=== PATIENT | female | born 1995 | race African-American/Black ===

== ENCOUNTER 2016-11-09 17:32 | Observation (INO) | payer MEDICAID ==
[2016-11-09] MEDS ORDERED: ceFAZolin 1 GM in NS 100 ML IV ONE (17:36)
[2016-11-09] MEDS ORDERED: fentaNYL 100 MCG/2 ML INJ IVP ONE (17:38)
[2016-11-09] MEDS ORDERED: LORazepam 2 MG/ML INJ IVP ONE (17:48)
--- NOTE | 2016-11-09 17:50 | EDPHY ---
H & P Stated Complaint: open right ankle fracture - Personal History LMP (Females 10-55): 8-14 Days Ago Current Tetanus/Diphtheria Vaccine: Yes Current Tetanus Diphtheria and Acellular Pertussis (TDAP): Yes Tetanus Vaccine Date: 2015 - Medical/Surgical History Hx Asthma: No Hx Chronic Respiratory Disease: No Hx Diabetes: No Hx Cardiac Disease: No Hx Renal Disease: No Hx Cirrhosis: No Hx Alcoholism: No Hx HIV/AIDS: No Hx Splenectomy or Spleen Trauma: No Other PMH: depression on meds - Social History Smoking Status: Never smoked Time Seen by Provider: 11/09/16 17:33 HPI/ROS: CHIEF COMPLAINT: Possible open right ankle fracture HISTORY OF PRESENT ILLNESS: 21-year-old female arrives by ambulance, not a trauma activation, after she was learning had a skateboard, was stopping and rolled her foot and ankle. She is complaining of acute right ankle pain, visible deformity, possible open fracture per EMS. She denies other injury. Denies head injury. Denies back pain injury, denies midline C-spine pain or injury, denies straddle injury, denies chest pain or trauma that dyspnea. Last oral intake at 12:30 p.m. today. REVIEW OF SYSTEMS: A ten point review of systems was performed and is negative with the exception of the items mentioned in the HPI PAST MEDICAL/SURGICAL HISTORY: no anticoagulant use, history of depression. SOCIAL HISTORY: denies alcohol use at time of incident PHYSICAL EXAM 1) GENERAL: Well-developed, well-nourished, alert and oriented. Appears to be in no acute distress. Answering questions appropriately. 2) HEAD: Normocephalic, atraumatic 3) HEENT: Pupils equal, round, reactive to light bilaterally. Negative Horners. Nasopharynx, oropharynx, clear. No deformity or angulation of nose. No septal hematoma. No rhinorrhea. No oral trauma. Ears bilaterally with normal tympanic membranes. No hemotympanum. No fluid or blood in the external auditory canal. No raccoon eyes. No Gilmore sign. Teeth are normally aligned with no gross malocclusion, TMJ bilaterally nontender, facial bones nontender including the zygomatic arch, maxilla mandible. 4) NECK: No cervical collar is on. Posterior cervical spine is nontender, no stepoff, no effusion. Full range of motion which does not elicit any midline cervical spine pain, no posterior midline tenderness, no step-off. 5) LUNGS: Clear to auscultation bilaterally, no wheezes, no rhonchi, no retractions. No obvious signs of trauma. No chest wall pain. No flaring, no grunting. Moving symmetrically. No crepitus. 6) HEART: Regular rate and rhythm, 7) ABDOMEN: No guarding, no rebound, no focal tenderness, no peritoneal signs, no signs of trauma, no ecchymosis 8) MUSCULOSKELETAL: Right lower extremity: The right foot is externally rotated 90 degrees with tenting of the tissue, laceration to the medial aspect of the foot. She is tender to palpation fibular head. DP PT pulses present. Brisk capillary refill. 9) BACK: No midline vertebral tenderness, no fluctuance, no step-off, no obvious trauma, no visual or palpable abnormality. 10) SKIN: right medial ankle laceration/puncture wound DIFFERENTIAL DIAGNOSIS: [ in no particular include but limited to fracture, dislocation, open fracture (Dawson,Seb Alexus) Constitutional: Initial Vital Signs Temperature (C) 36.5 C 11/09/16 17:35 O2 Delivery Mode Room Air O2 (L/minute) 2 Allergies/Adverse Reactions: No Known Allergies Allergy (Unverified 11/09/16 17:37) Home Medications: Medication Instructions Recorded Venlafaxine Xr [Effexor Xr] 300 mg PO DAILY 11/09/16 Medical Decision Making - Diagnostics Imaging Results: Imaging Impressions Ankle X-Ray 11/09/16 17:35 Impression: Fracture dislocation ankle. 2. Right Tibia-Fibula, 4 views History: Long board injury, ankle fracture dislocation Findings: The more proximal tibia and fibula look normal. The proximal tibiofibular joint is normally aligned. The distal interosseous membrane is disrupted along its distal 6 cm length. Impression: The more proximal tibia left and entirety of the tibia are normal. Tibia/Fibula X-Ray 11/09/16 17:40 Impression: Fracture dislocation ankle. 2. Right Tibia-Fibula, 4 views History: Long board injury, ankle fracture dislocation Findings: The more proximal tibia and fibula look normal. The proximal tibiofibular joint is normally aligned. The distal interosseous membrane is disrupted along its distal 6 cm length. Impression: The more proximal tibia left and entirety of the tibia are normal. Ankle X-Ray 11/09/16 18:01 Impression: Successful reduction. 2. Right Ankle, 3 views in a cast, 18:18 History: Post reduction Comparison: Prereduction 17:56 Findings: The distal fibular fracture is comminuted and approaches anatomic alignment. There is abnormal widening of the medial ankle mortise, adjacent to the relocated talar dome. No talar dome or distal tibial fracture is identified. Impression: The medial ankle mortise remains abnormally widened. The dislocation has been reduced. Images reviewed by myself (Seb Osman) Procedures: Procedure: Fracture- Dislocation reduction. The fracture-dislocation of the right ankle was reduced using traction and counter traction technique without complications. Post reduction the patient's neurovascular exam is normal. Post reduction x-ray demonstrates reduction of the joint to the anatomic position. The procedure was performed by myself and Dr Stafford Procedure: Splint A 3 way Ortho Glass above the knee splint was applied by ER production line technician. After application of the splint I returned and re-examined the patient. The splint was adequately immobilizing the joint and distal to the splint the patient's circulation and sensation were intact. (Seb Osman) ED Course/Re-evaluation: Patient seen on arrival by myself and Dr. Victoria Stafford. She has visible deformity with likely open fracture. Plan will be IV Ancef, analgesia, x-rays. 6:14 p.m.: Due to concerns over the patient's neurovascular status, significant tenting of the tissue, decision to emergently reduce the patient's ankle was performed. Dr. Victoria Stafford has spoken with orthopedics Dr. Philipp Reza'gaetano and plan will be admission to Dr. Reza's service. Patient was also noted to have abnormal appearance to the foot on imaging. CT of the foot and ankle with 3D reconstructions will be obtained. (Seb Osman) Other Provider: I evaluated and participated in the management of the patient. I also evaluated the patient independently. My co-signature indicates that I have reviewed this chart and I agree with the findings and plan of care as documented. My personal H&P findings include: 21-year-old female who injured her ankle while long boarding. Patient stepped off the back of the long board to stop and felt a snap in the right ankle. She presents with a significant obvious ankle dislocation with significant tenting of the skin over the medial malleoli as well as a possible open fracture. On examination the patient has a obvious ankle dislocation on the right ankle. Dorsalis pedis and posterior tibial pulses surprisingly are intact. No discomfort of the proximal fibula. X-rays demonstrate a tibial talar dislocation with a fracture of the distal fibula. Patient received a g of Ancef. Patient received fentanyl IV. Closed reduction of the dislocation was performed. Please see the dislocation reduction procedure note. Post reduction x-rays demonstrate the ankle mortise to be slightly widen. Postreduction x-rays also demonstrate concerns regarding apart potential mid foot sprains or midfoot subluxation. CT scans will be obtained. Patient's course was discussed shortly after the patient arrived with Dr. Reza from Orthopedic surgery. Dr. Reza reviewed the pre and post reduction films as well as the CT scan admitted to Dr. Flores service for operative repair. (Victoria Stafford) - Data Points Medications Given: Discontinued Medications Bacitracin (Bacitracin Ophthalmic) Confirm Administered Dose 28 margareth .ROUTE .STK- MED ONE Stop: 11/09/16 19:51 Last Admin: 11/09/16 23:20 Dose: Not Given Bacitracin (Bacitracin Ointment Tube) Confirm Administered Dose 14.2 margareth TP .STK -MED ONE Stop: 11/09/16 22:32 Last Admin: 11/10/16 00:45 Dose: Not Given Bupivacaine HCl (Sensorcaine 0.25% Sdv) Confirm Administered Dose 30 ml .ROUTE .STK-MED ONE Stop: 11/09/16 19:51 Last Admin: 11/09/16 23:32 Dose: Not Given Fentanyl (Sublimaze) 100 mcg IVP EDNOW ONE Stop: 11/09/16 17:39 Last Admin: 11/09/16 17:40 Dose: 100 mcg Hydromorphone HCl (Dilaudid) 1 mg IVP EDNOW ONE Stop: 11/09/16 18:05 Last Admin: 11/09/16 18:07 Dose: 1 mg Cefazolin Sodium 1 gm/ Sodium (Chloride) 100 mls @ 400 mls/hr IV EDNOW ONE PRN Reason: Protocol Stop: 11/09/16 17:50 Last Admin: 11/09/16 18:19 Dose: Not Given Cefazolin Sodium/Dextrose (Ancef 1 Gm (Premix)) 50 mls @ 200 mls/hr IV EDNOW ONE PRN Reason: Protocol Stop: 11/09/16 18:11 Last Admin: 11/09/16 18:03 Dose: 50 mls Lactated Ringer's (Lr) 1,000 mls @ 0 mls/hr IV ONCE ONE PRN Reason: KVO Stop: 11/09/16 20:24 Last Admin: 11/10/16 00:46 Dose: Not Given Lidocaine HCl (Lidocaine Hcl 1%) Confirm Administered Dose 300 mg .ROUTE .STK- MED ONE Stop: 11/09/16 19:51 Last Admin: 11/09/16 23:34 Dose: 5 mg Lorazepam (Ativan Injection) 1 mg IVP EDNOW ONE Stop: 11/09/16 17:49 Last Admin: 11/09/16 17:52 Dose: 1 mg Departure - Departure Disposition: [facility] Inpatient Acute Clinical Impression: Open right ankle fracture Qualifiers: Encounter type: initial encounter Open fracture type: open type I or II Qualified Code(s): S82.891B - Other fracture of right lower leg, initial encounter for open fracture type I or II Fall from skateboard Qualifiers: Encounter type: initial encounter Qualified Code(s): V00.131A - Fall from skateboard, initial encounter Condition: Fair
[2016-11-09] MEDS ORDERED: HYDROmorphONE/DILAUDID 1 MG/ML INJ IVP ONE (18:04)
[2016-11-09] MEDS ORDERED: BUPIVACAINE 0.25% 30 ML SDV ONE (19:50)
[2016-11-09] MEDS ORDERED: BACITRACIN OPHTHALMIC OPTH OINTMENT ONE (19:50)
[2016-11-09] MEDS ORDERED: LIDOCAINE 1% 300 MG/30 ML SDV ONE (19:50)
--- NOTE | 2016-11-09 20:06 | PDANEPAE ---
ANE History of Present Illness right ankle fx s/p fall; p/f ORIF ANE Past Medical History - Cardiovascular History Hx Hypertension: No Hx Arrhythmias: No Hx Chest Pain: No Hx Coronary Artery / Peripheral Vascular Disease: No Hx CHF / Valvular Disease: No Hx Palpitations: No - Pulmonary History Hx COPD: No Hx Asthma/Reactive Airway Disease: No Hx Recent Upper Respiratory Infection: No Hx Oxygen in Use at Home: No Hx Sleep Apnea: No - Endocrine History Hx Diabetes: No Hypothyroid: No Hyperthyroid: No Obesity: no ANE Review of Systems Review of systems is: negative Review of Systems: - Exercise capacity Exercise capacity: >=4 METS ANE Patient History - Allergies Allergies/Adverse Reactions: No Known Allergies Allergy (Unverified 11/09/16 17:37) - Home Medications Home medications: home medication list seen and reviewed Home Medications: Venlafaxine Xr [Effexor Xr] 300 mg PO DAILY 11/09/16 [Last Taken 11/09/16] - NPO status NPO Since - Liquids (Date): 11/09/16 NPO Since - Liquids (Time): 17:00 NPO Since - Solids (Date): 11/09/16 NPO Since - Solids (Time): 12:00 - Anes Hx Anes Hx: no prior problems - Smoking Hx Smoking Status: Never smoked ANE Labs/Vital Signs - Vital Signs Blood Pressure: 151/77 Heart Rate: 78 Respiratory Rate: 16 O2 Sat (%): 98 Height: 180.34 cm Weight: 83.915 kg ANE Physical Exam - Airway Neck exam: FROM Mallampati Score: Class 1 Mouth exam: normal dental/mouth exam - Pulmonary Pulmonary: no respiratory distress - Cardiovascular Cardiovascular: regular rate and rhythym - ASA Status ASA Status: II, E ANE Anesthesia Plan Anesthesia Plan: general endotracheal anesthesia Urgent/Emergent Case: Nishant brewer completed preop but documented later for safe timely pt care
[2016-11-09] MEDS ORDERED: PROPOFOL 200 MG/20 ML VIAL ONE ×2 (20:08)
[2016-11-09] MEDS ORDERED: fentaNYL 100 MCG/2 ML INJ ONE (20:08)
[2016-11-09] MEDS ORDERED: LIDOCAINE 2% 5 ML SDV ONE (20:12)
[2016-11-09] MEDS ORDERED: DEXAMETHASONE 4 MG/ML VIAL ONE (20:14)
[2016-11-09] MEDS ORDERED: ONDANSETRON 4 MG/2 ML VIAL ONE (20:14)
[2016-11-09] MEDS ORDERED: LR 1,000 ML IV ONE (20:23)
[2016-11-09] MEDS ORDERED: CEFAZOLIN 1 GM/DEXTROSE/50 ML BAG IV ONE (20:30)
[2016-11-09] MEDS ORDERED: SUGAMMADEX SODIUM 200 MG/2 ML VIAL IVP ONE (20:59)
[2016-11-09] MEDS ORDERED: ROCURONIUM 100 MG/10 ML VIAL ONE (21:00)
[2016-11-09] MEDS ORDERED: HYDROmorphONE/DILAUDID 2 MG/ML INJ ONE (21:06)
[2016-11-09] MEDS ORDERED: BACITRACIN ZINC 14.2 GM OINTTUBE TP ONE (22:31)
[2016-11-09] MEDS ORDERED: HYDROmorphONE/DILAUDID 1 MG/ML INJ IVP PRN (23:09)
[2016-11-09] MEDS ORDERED: OXYCODONE/APAP 5/325 TAB PO PRN (23:09)
[2016-11-09] MEDS ORDERED: PROMETHAZINE HCL 25 MG/ML INJ IVP PRN (23:09)
[2016-11-09] MEDS ORDERED: ALBUTEROL 3 ML DEYVIAL IH PRN (23:09)
[2016-11-09] MEDS ORDERED: fentaNYL 100 MCG/2 ML INJ IVP PRN (23:09)
[2016-11-09] MEDS ORDERED: NALOXONE HCL 0.4 MG/ML INJ IVP PRN (23:09)
[2016-11-09] MEDS ORDERED: ACETAMINOPHEN 500 MG TAB PO PRN (23:09)
[2016-11-09] MEDS ORDERED: ONDANSETRON 4 MG/2 ML VIAL IVP PRN (23:09)
--- NOTE | 2016-11-09 23:51 | POSTANESTH ---
Post Anesthetic Evaluation Cardiovascular Status: Normal, Stable Respiratory Status: Normal, Stable Level of Consciousness/Mental Status: Can Participate in Eval Pain Control: Adequate, Prn Tx Ordered Nausea/Vomiting Control: Adequate, Prn Tx Ordered Complications Possibly Related to Anesthesia: None Noted
--- NOTE | 2016-11-10 00:18 | POSTOPPROG ---
Post Op Note Date of Operation: 11/10/16 Surgeon: Philipp Reza Supervisor Plastic Sheets: None Anesthesia: GET(General Endotracheal) Pre-op Diagnosis: Right open ankle fracture dislocation Post-op Diagnosis: Right open ankle fracture dislocation, cartilage defect of talus Procedure: I&D and ORIF of Right ankle fracture, Microfracture of chondral defect Inf/Abcess present in the surg proc area at time of surgery?: No EBL: Minimal
[2016-11-10] MEDS ORDERED: NS 1,000 ML IV SCH (00:30)
[2016-11-10] MEDS: oxyCODONE IR 5 MG TAB PO PRN ×4 (01:17→13:30)
[2016-11-10 01:53] VITALS: RESP 16
[2016-11-10] MEDS: ACETAMINOPHEN 325 MG TAB PO PRN ×3 (04:14→13:30)
[2016-11-10] MEDS: ceFAZolin 2 GM/DEXTROSE 100 ML IV SCH ×2 (05:14→14:45)
[2016-11-10 05:50] LABS: % IMMATURE GRANULYOCYTES 0.3 % (0.0-1.1); ABSOLUTE IMMATURE GRANULOCYTES 0.02 10^3/uL (0.00-0.10); ADD DIFF? NO; ADD MORPH? NO; ADD SCAN? NO; ATYPICAL LYMPHOCYTE FLAG 0 (0-99); FRAGMENT RBC FLAG 0 (0-99); HEMATOCRIT 38.9 % (38.0-47.0); LEFT SHIFT FLG 0 (0-99); LIPEMIA HEMOLYSIS FLAG 80 (0-99); MEAN CELL HEMOGLOBIN CONCENTR. 33.4 g/dL (32.4-36.7); MEAN CELL VOLUME 92.8 fL (81.5-99.8); MEAN PLATELET VOLUME 10.4 fL (8.7-11.7); PLATELET CLUMPS FLAG 10 (0-99); PLATELET COUNT 218 10^3/uL (150-400); RED BLOOD CELL COUNT 4.19 10^6/uL (4.18-5.33); RED CELL DISTRIBUTION WIDTH 11.9 % (11.5-15.2)
[2016-11-10 05:59] LABS: APTT 25.2 SEC (23.0-38.0); INR 1.19 (0.83-1.16); PROTIME(PATIENT) 15.1 SEC (12.0-15.0)
[2016-11-10 06:01] LABS: ANION GAP 9 mEq/L (8-16); CARBON DIOXIDE 25 mEq/l (22-31); CHLORIDE 102 mEq/L (97-110); CREATININE 0.9 mg/dL (0.6-1.0); GLOMERULAR FILTRATION RATE > 60; GLUCOSE 116 mg/dL (70-100); POTASSIUM 4.5 mEq/L (3.5-5.2); SODIUM 136 mEq/L (134-144)
[2016-11-10] MEDS ORDERED: ENOXAPARIN 30 MG/0.3 ML SYR SC SCH (09:00)
[2016-11-10 12:12] VITALS: BP 122/72; PULSE 79; TEMP 98.2; O2SAT 97
[2016-11-10] MEDS ORDERED: oxyCODONE IR 5 MG TAB PO PRN (13:47)
[2016-11-10] MEDS ORDERED: CYCLOBENZAPRINE 10 MG TAB PO PRN (13:47)
--- NOTE | 2016-11-10 14:03 | PDGENHP ---
History and Physical - Chief Complaint Right open ankle fracture - History of Present Illness 21y F senior p/w Right open ankle fracture. Patient was on longboard and stepped off to brake when her foot was pulled laterally and she had immediate pain and deformity. In the ED, she was found to have an open medial wound after they reduced her ankle under the tibia. An I&D was planned. History Information - Allergies/Home Medication List Allergies/Adverse Reactions: No Known Allergies Allergy (Unverified 11/09/16 17:37) Home Medications: Venlafaxine Xr [Effexor Xr] 300 mg PO DAILY 11/09/16 [Last Taken 11/09/16] I have personally reviewed and updated: family history, medical history, social history, surgical history Past Medical History: Depression - Past Medical History no pertinent PMH - Surgical History Reports: no pertinent surgical hx - Family History Positive for: non-pertinent - Social History Smoking Status: Never smoked Additional social history: [employer]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 Review of Systems Review of Systems: ROS: 10pt was reviewed & negative except for what was stated in HPI & below Physical Exam Physical Exam: AxOx3. Corrective eyewear. unlabored breathing. Hearing intact. RLE: bloody dressing on inner medial ankle. SILT S/S/SP/DP/T. 2+ DP pulse. WWP foot. Wiggling toes with pain. + edema Moving LUE/LLE/RUE without issue Temp Pulse Resp BP Pulse Ox 36.8 C 79 16 122/72 H 97 11/10/16 12:00 11/10/16 12:00 11/10/16 12:00 11/10/16 12:00 11/10/16 12:00 O2 (L/minute) 2 Lab Data & Imaging Review 11/10/16 05:24 11/10/16 05:24 WBC 7.18 10^3/uL (3.80-9.50) 11/10/16 05:24 RBC 4.19 10^6/uL (4.18-5.33) 11/10/16 05:24 Hgb 13.0 g/dL (12.6-16.3) 11/10/16 05:24 Hct 38.9 % (38.0-47.0) 11/10/16 05:24 MCV 92.8 fL (81.5-99.8) 11/10/16 05:24 MCH 31.0 pg (27.9-34.1) 11/10/16 05:24 MCHC 33.4 g/dL (32.4-36.7) 11/10/16 05:24 RDW 11.9 % (11.5-15.2) 11/10/16 05:24 Plt Count 218 10^3/uL (150-400) 11/10/16 05:24 MPV 10.4 fL (8.7-11.7) 11/10/16 05:24 Neut % (Auto) 87.2 % (39.3-74.2) H 11/10/16 05:24 Lymph % (Auto) 7.8 % (15.0-45.0) L 11/10/16 05:24 Wright % (Auto) 4.6 % (4.5-13.0) 11/10/16 05:24 Eos % (Auto) 0.0 % (0.6-7.6) L 11/10/16 05:24 Baso % (Auto) 0.1 % (0.3-1.7) L 11/10/16 05:24 Nucleat RBC Rel Count 0.0 % (0.0-0.2) 11/10/16 05:24 Absolute Neuts (auto) 6.26 10^3/uL (1.70-6.50) 11/10/16 05:24 Absolute Lymphs (auto) 0.56 10^3/uL (1.00-3.00) L 11/10/16 05:24 Absolute Monos (auto) 0.33 10^3/uL (0.30-0.80) 11/10/16 05:24 Absolute Eos (auto) 0.00 10^3/uL (0.03-0.40) L 11/10/16 05:24 Absolute Basos (auto) 0.01 10^3/uL (0.02-0.10) L 11/10/16 05:24 Absolute Nucleated RBC 0.00 10^3/uL (0-0.01) 11/10/16 05:24 Immature Gran % 0.3 % (0.0-1.1) 11/10/16 05:24 Immature Gran # 0.02 10^3/uL (0.00-0.10) 11/10/16 05:24 PT 15.1 SEC (12.0-15.0) H 11/10/16 05:24 INR 1.19 (0.83-1.16) H 11/10/16 05:24 APTT 25.2 SEC (23.0-38.0) 11/10/16 05:24 Sodium 136 mEq/L (134-144) 11/10/16 05:24 Potassium 4.5 mEq/L (3.5-5.2) 11/10/16 05:24 Chloride 102 mEq/L (97-110) 11/10/16 05:24 Carbon Dioxide 25 mEq/l (22-31) 11/10/16 05:24 Anion Gap 9 mEq/L (8-16) 11/10/16 05:24 BUN 9 mg/dL (7-23) 11/10/16 05:24 Creatinine 0.9 mg/dL (0.6-1.0) 11/10/16 05:24 Estimated GFR > 60 11/10/16 05:24 Glucose 116 mg/dL (70-100) H 11/10/16 05:24 Calcium 9.0 mg/dL (8.5-10.4) 11/10/16 05:24 Beta HCG, Quant < 2.39 mIU/mL (0.00-4.83) 11/10/16 05:24 Imaging Review: Radiographs visually reviewed showing Galeano C fracture dislocation of the ankle , reduced by ED Assessment & Plan Assessment: 21y F [employer] senior p/w open Right ankle fracture dislocation Fall from skateboard (Acute) Open right ankle fracture (Acute) Plan: We discussed the need for an I&D of the RIght ankle at a minimum. We discussed the potential for definitive fixation of the fracture at the same time if the wound is amenable. The open wound was noted in the ED and seems more phuong result of the dislocation than any dirty direct penetrating wound mechanism. The patient wished to proceed with the potential operative fixation strategy along with the washout. We discussed the risks of surgery, including infection, bleeding, nonunion, malunion, neurovascular injury, need for addtional surgery, limb loss and . The benefits & alternatives were discussed. We will proceed with operative fixation
--- NOTE | 2016-11-10 14:13 | SOAPPROG ---
CRISTIAN Progress Note Assessment/Plan: Assessment: 21y F POD#1 Right open ankle fracture dislocation s/p I&D of Right ankle, ORIF Right ankle fracture, microfracture of talus Plan: - NWB RLE - Elevate RLE at rest - Pain control - DVT ppx - Complete 24h of abx for open fracture - Xray RLE - PT - followup in 2-3 weeks for wound check and change of splint to cast. - Dispo: d/c home after working with PT 11/10/16 14:09 Subjective: Patient pain controlled OK, but would like increased frequency as it seems to wear off by 3 hours. Objective: Vital Signs Temp Pulse Resp BP Pulse Ox 36.8 C 79 16 122/72 H 97 11/10/16 12:00 11/10/16 12:00 11/10/16 12:00 11/10/16 12:00 11/10/16 12:00 Laboratory Results 11/10/16 05:24 11/10/16 05:24 11/09/16 11/10/16 11/11/16 05:59 05:59 05:59 Intake Total 1400 Output Total 720 Balance 680 PT 15.1 SEC (12.0-15.0) H 11/10/16 05:24 INR 1.19 (0.83-1.16) H 11/10/16 05:24 RLE: Splint CDI. Soft calf. SILT SP/DP/T. BCR x5. WWP toes. Wiggling toes well. ICD10 Worksheet Patient Problems: Problems Problem Status Onset Fall from skateboard Acute Open right ankle fracture Acute
--- NOTE | 2016-11-10 14:31 | SUROPNOTE ---
[facility] Operative Report - Surgery Operative Report DOS: 11/09/2016 Attg: Philipp Reza Asst: None Preop Dx: Open Right ankle fracture dislocation Postop Dx: Open right ankle fracture dislocation with talar chondral injury Procedure: I&D Right ankle, Microfracture of talus chondral injury, ORIF Right ankle with syndesmotic fixation Indication: 21y F [employer] senior s/p longboard injury p/w Right open ankle fracture dislocation. Pt stepped off to brake with Right foot and broke ankle. ED reduced but medial wound to joint noted. Patient elected for operative washout with possible fixation of ankle at same time Procedural Note: After reviewing consent, the patient elected to proceed. She was taken to the OR , transferred to bed, and anesthesia induced. Nonsterile tourniquet applied to Right leg. Leg was prepped and draped. Timeout performed confirming site, procedure, patient, and antibiotic status Tourniquet raised. Medial wound inspected first. 1cm diameter with clean margins, consistent with laceration due to dislocation. incision was made extending the wound distally and proximally to expose the joint clearly. Talar dome and plafond visualized. PLafond intact. large cartilage flap noted on anterior medial talar dome. Flap was excised, revealing 3mm diameter subchondral bone surface. smaller fissure of cartilage on psoterior talar dome medial corner. The lesions were drilled with K-wire to stimulate bleeding. >3L of normal saline irrigated throughout the joint. friable tissue sharply excised from wound margins. Avulsion of deep and superficial deltoid noted. Some periosteal stripping seen. Attention turned to fibula. Direct lateral incision made over fracture. Blunt dissection through soft tissues performed to protect SPN, which was not directly seen. The fracture was identified. Large, comminuted posterior butterfly fragments. Fracture was cleaned. posterior butterfly lagged (with two 2.0mm Synthes cortical screws) to distal fragment to create a 2-piece fracture, but this did not reduce well against the proximal fragment. The screws were removed, and the butterfly and both major proximal and distal fragments were reduced together at once to interlock appropriately. Same lag screws were placed back distally. The proximal fragment was lagged to the butterfly with a 2.0mm screw as well. A small comminuted point fragment of the butterfly was left free proxmally and posteriorly since it was small and the fibular length and rotation had been reconstructed already. A long 1/3 tubular locking plate was applied to the fibula as a neutralization plate. The plate was fixed proximally and distally. The syndesmosis was insufficient and a clamp was used to reduce the syndesmosis. the reduction was checked against fluoroscopic views taken at the start of the case of the other side. A 4.0 mm synthes cortical screw was used as a syndesmotic screw placed just outside the distal aspect of the plate. The wounds were again irrigated with more normal saline lavage. The lateral wound was closed with O vicryl to create a fascial covering over the hardware. 2-O vicryl was used to close the subcutaneous layer. 3-O nylon used to close the skin. The anteromedial ankle wound was closed in layers. Some of the stripped periosteum and superficial deltoid were repaired under the medial skin wound. the subcutaneous skin wound was also closed with 2-O vicryl. The skin was closed with 3-O nylon, achieving primary closure of the previously open wound. A sterile dressing was applied. A short leg splint was applied The patient was taken back to PACU for further management and observation Implants; SYnthes 1/3 tubular locking plate. 3.5, 4.0, 2.0mm cortical screws. one locking 3.5 screw Complications: none EBL: 25cc Drains: None
[2016-11-10] MEDS ORDERED: oxyCODONE IR 5 MG TAB ONE ×2 (20:06)
[2016-11-10] MEDS ORDERED: oxyCODONE IR 5 MG TAB PO ONE (20:12)
--- NOTE | 2016-11-11 17:07 | ASDISCHSUM ---
Discharge Information Plan Status:Home with No Needs Medically Cleared to Leave:11/10/2016 Discharge Date:11/10/2016 05:24 PM CM D/C Disposition:Home, Routine, Self-Care ADT D/C Disposition:Home, Routine, Self-Care Projected Discharge Date:11/10/2016 12:00 AM Transportation at D/C:Friend Discharge Delay Reason: Follow-Up Date:11/10/2016 12:00 AM Discharge Slot: Final Diagnosis:ORIF right foot Placement Information Patient Contact Information Contact Name:KELSEY Relationship:Mother Address: Work Phone: City: [facility] Phone: State/[place] Security Code: Email: Financial Information Financial Class: Primary Plan Desc:[employer] [place] Primary Plan Number:[id number] Secondary Plan Desc: Secondary Plan Number: Assessment Information [facility] CM Progress Note CM Note CM Note Notes: Pt admitted for right open ankle fracture. ORIF performed by Dr. Reza. CM met met w/ pt dispo planning. Pt had friends visiting upon [facility] arrival. Pts family lives in [place], [place]. 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. Pt reports that she does not have any needs when she discharges. Pt reports having supportive friends. CM available for any changes. Date Signed: 11/10/2016 02:42 PM Electronically Signed By:Kelsi Miramontes Intervention Information
--- NOTE | 2016-11-11 17:08 | ASMTCMCOM ---
CM Note CM Note Notes: Pt admitted for right open ankle fracture. ORIF performed by Dr. Reza. CM met met w/ pt dispo planning. Pt had friends visiting upon [facility] arrival. Pts family lives in [place], [place]. 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 Pt reports that she does not have any needs when she discharges. Pt reports having supportive friends. CM available for any changes. Date Signed: 11/10/2016 02:42 PM Electronically Signed By:Kelsi Miramontes
--- NOTE | 2016-11-11 17:08 | ASMTCMCOM ---
CM Note CM Note Notes: Spoke w/ MARY Nagy. Pt to discharge home today independently w/ no identified needs and friend support. Pt to f/u as directed. CM avail for any further issues or concerns. Date Signed: 11/10/2016 06:20 PM Electronically Signed By:Mandy Vann
== END 2016-11-10 17:24 | disposition home or self-care (01) ==
LOC: EDUNIT# → F3N 11-10 00:28
PROVIDERS: ADMIT Orthopaedic Surgery; ATTEND Orthopaedic Surgery
PROC: 0QSJ04Z Reposition Right Fibula with Internal Fixation Device, Open Approach (ICD-10-PCS; principal; 2016-11-09 20:30)
DX: S82.441B Displaced spiral fracture of shaft of right fibula, initial encounter for open fracture type I or II (principal); V00.131A Fall from skateboard, initial encounter; Y93.51 Activity, roller skating (inline) and skateboarding
CPT/HCPCS: 27784; 73590; 73610; 73620; 73700; 97161; G0378; 96374; C1713; J0690; J1100; J1170; J1650; J2060; J2405; J2704; J3010

== ENCOUNTER 2016-12-23 21:11 | Emergency (ER) | payer MEDICAID ==
--- NOTE | 2016-12-23 21:14 | EDPHY ---
H & P Source: Patient Exam Limitations: No limitations - Personal History LMP (Females 10-55): 8-14 Days Ago Tetanus Vaccine Date: 2015 - Medical/Surgical History Hx Asthma: No Hx Chronic Respiratory Disease: No Hx Diabetes: No Hx Cardiac Disease: No Hx Renal Disease: No Hx Cirrhosis: No Hx Alcoholism: No Hx HIV/AIDS: No Hx Splenectomy or Spleen Trauma: No Other PMH: depression on meds - Social History Smoking Status: Never smoked Time Seen by Provider: 12/23/16 21:14 HPI/ROS: HPI: This is a 21-year-old female who presents with Chief Complaint: M1 hold Location: psych Quality: M1 hold Duration: Today Signs and Symptoms: + depression, + anxiety, + insomnia, + anhedonia, + suicide ideation with plan, no homicidal ideation, no hallucinations, + decreased appetite Timing: Acute on chronic Severity: Moderate to severe Context: Patient is at [employer] who called her friend Annabelle this evening to inform her that she was severely depressed did not want to live any longer and that she was going to take all her medications at once in order to end her life as she does not feel like she wants to live. Her friend called [employer] police. Patient reports that she has been feeling like this since . Only ate breakfast today. Has a history of depression anxiety. Had not been taking her antidepressants over the summer. No prior history of suicide attempts. Patient reports that her mother knows about her depression anxiety but not the extent of the recent events. Her mother lives approximately 2 hours away in [place]. Denies illegal drug use/alcohol abuse. Modifying Factors: Comment: ROS: see HPI Constitutional: No fever, no chills, no weight loss Eyes: No blurred vision Respiratory: No shortness of breath, no cough Cardiovascular: No chest pain Gastrointestinal: No nausea, no vomiting, no diarrhea Genitourinary: No dysuria Extremities: No myalgias Neurologic: No weakness, no numbness Skin: No rashes Hematologic: No bruising, no bleeding MEDICAL/SURGICAL/SOCIAL HISTORY: Medical history: Generally healthy. Does not take any regular medications. 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 CONSTITUTIONAL: Young adult black female, awake and alert, no obvious distress HEENT: Atraumatic and normocephalic, PERRL, EOMI. Tympanic membranes clear. Oropharynx clear, no exudate and moist pink mucosa. Airway patent. No lymphadenopathy. No meningismus. Cardiovascular: Normal S1/S2, mild tachycardia, regular rhythm, without murmur rub or gallop. PULMONARY/CHEST: Symmetrical and nontender. Clear to auscultation bilaterally. Good air movement. No accessory muscle usage. ABDOMEN: Soft, nondistended, nontender, no rebound, no guarding, no peritoneal signs, no masses or organomegaly. No CVAT. EXTREMITIES: 2/2 pulses, no deformities, no clubbing, no cyanosis or edema. NEUROLOGICAL: no focal neuro deficits. GCS 15. SKIN: Warm and dry, no erythema. no rash. Good capillary refill. PSYCH: Poor eye contact, flat affect, no flight of ideas, organized thought process, poor insight and judgment, no auditory and visual command hallucinations, + suicidal ideation with a plan, no homicidal ideation, no paranoia ([place]) Constitutional: Initial Vital Signs Temperature (C) 37.2 C 12/23/16 21: Heart Rate 107 H 12/23/16: Respiratory Rate 16 12/23/16 21:22 Blood Pressure 115/57 L 12/23/16 21:22 O2 Sat (%) 94 12/23/16: O2 Delivery Mode Room Air Allergies/Adverse Reactions: No Known Allergies Allergy (Unverified 11/09/16 17:37) Home Medications: Medication Instructions Recorded Venlafaxine Xr [Effexor Xr] 300 mg PO DAILY 11/09/16 hydrOXYzine HCL [Vistaril 25MG] 25 mg PO Q8H PRN #30 tab 11/10/16 Hydrocodone/APAP 5/325 [[place] 1 - 2 tab PO Q4H PRN #40 tab 11/16/16 5/325 (*)] Amitriptyline HCl 12/23/16 Medical Decision Making ED Course/Re-evaluation: The patient was evaluated and managed by the physician's care assistant. My cosignature indicates that I reviewed the chart and I agree with the findings and plan of care as documented. I am the secondary supervising physician. ( Carmelita Fischer) labs and urinalysis ordered 2024: M1 hold for suicidal ideation with a plan and severe major depression. Patient is calm and cooperative upon arrival. No interventions required at this time. 2200: Reviewed labs and UDS; medically clear for mental health evaluation 5: End of Shift. Signed over to Dr. Lauren pending mental health evaluation and recommendations. (Sariah Gonzalez) Differential Diagnosis: Altered mental status including but not limited to hypoglycemia, infectious process, electrolyte abnormality, head injury and intoxicants. (Sariah Gonzalez) Other Provider: 4:00 a.m.- The patient has been accepted at [facility] for admission. The accepting physician is . I have completed the EMTALA form. ( Leanna Lauren) - Data Points Laboratory Results: Laboratory Results 12/23/16 21:25 12/23/16 21:25 12/23/16 12/23/16 12/23/16 21:45 21:45 21:25 WBC RBC Hgb Hct MCV MCH MCHC RDW Plt Count MPV Neut % (Auto) Lymph % (Auto) [place] % (Auto) Eos % (Auto) Baso % (Auto) Nucleat RBC Rel Count Absolute Neuts (auto) Absolute Lymphs (auto) Absolute Monos (auto) Absolute Eos (auto) Absolute Basos (auto) Absolute Nucleated RBC Immature Gran % Immature Gran # Sodium 137 mEq/L mEq/L (134-144) Potassium 3.6 mEq/L mEq/L (3.5-5.2) Chloride 104 mEq/L mEq/L (97-110) Carbon Dioxide 23 mEq/l mEq/l (22-31) Anion Gap 10 mEq/L mEq/L (8-16) BUN 10 mg/dL mg/dL (7-23) Creatinine 0.9 mg/dL mg/dL (0.6-1.0) Estimated GFR > 60 Glucose 78 mg/dL mg/dL (70-100) Calcium 9.3 mg/dL mg/dL (8.5-10.4) Beta HCG, Qual NEGATIVE Salicylates < 1.0 mg/dL L mg/dL (2.0-20.0) Urine Opiates Screen NEGATIVE (NEGATIVE) Acetaminophen < 10 mcg/mL L mcg/mL (10-30) Urine Barbiturates NEGATIVE (NEGATIVE) Ur Phencyclidine Scrn NEGATIVE (NEGATIVE) Ur Amphetamine Screen NEGATIVE (NEGATIVE) U Benzodiazepines Scrn NEGATIVE (NEGATIVE) Urine Cocaine Screen NEGATIVE (NEGATIVE) U Marijuana (THC) Screen NEGATIVE (NEGATIVE) Ethyl Alcohol < 10 mg/dL mg/dL (0-10) 12/23/16 21:25 WBC 5.08 10^3/uL 10^3/uL (3.80-9.50) RBC 3.99 10^6/uL L 10^6/uL (4.18-5.33) Hgb 12.5 g/dL L g/dL (12.6-16.3) Hct 35.6 % L % (38.0-47.0) MCV 89.2 fL fL (81.5-99.8) MCH 31.3 pg pg (27.9-34.1) MCHC 35.1 g/dL g/dL (32.4-36.7) RDW 12.8 % % (11.5-15.2) Plt Count 261 10^3/uL 10^3/uL (150-400) MPV 9.5 fL fL (8.7-11.7) Neut % (Auto) 66.9 % % (39.3-74.2) Lymph % (Auto) 24.0 % % (15.0-45.0) [place] % (Auto) 7.7 % % (4.5-13.0) Eos % (Auto) 0.6 % % (0.6-7.6) Baso % (Auto) 0.6 % % (0.3-1.7) Nucleat RBC Rel Count 0.0 % % (0.0-0.2) Absolute Neuts (auto) 3.40 10^3/uL 10^3/uL (1.70-6.50) Absolute Lymphs (auto) 1.22 10^3/uL 10^3/uL (1.00-3.00) Absolute Monos (auto) 0.39 10^3/uL 10^3/uL (0.30-0.80) Absolute Eos (auto) 0.03 10^3/uL 10^3/uL (0.03-0.40) Absolute Basos (auto) 0.03 10^3/uL 10^3/uL (0.02-0.10) Absolute Nucleated RBC 0.00 10^3/uL 10^3/uL (0-0.01) Immature Gran % 0.2 % % (0.0-1.1) Immature Gran # 0.01 10^3/uL 10^3/uL (0.00-0.10) Sodium Potassium Chloride Carbon Dioxide Anion Gap BUN Creatinine Estimated GFR Glucose Calcium Beta HCG, Qual Salicylates Urine Opiates Screen Acetaminophen Urine Barbiturates Ur Phencyclidine Scrn Ur Amphetamine Screen U Benzodiazepines Scrn Urine Cocaine Screen U Marijuana (THC) Screen Ethyl Alcohol Departure - Departure Disposition: Other Psych, Not [place] Clinical Impression: Depression with suicidal ideation Condition: Fair
[2016-12-23 21:25] VITALS: RESP 16; TEMP 99
[2016-12-23 21:51] LABS: % IMMATURE GRANULYOCYTES 0.2 % (0.0-1.1); ABSOLUTE IMMATURE GRANULOCYTES 0.01 10^3/uL (0.00-0.10); ADD DIFF? NO; ADD MORPH? NO; ADD SCAN? NO; ATYPICAL LYMPHOCYTE FLAG 0 (0-99); FRAGMENT RBC FLAG 0 (0-99); HEMATOCRIT 35.6 % (38.0-47.0); HEMOGLOBIN 12.5 g/dL (12.6-16.3); LEFT SHIFT FLG 0 (0-99); LIPEMIA HEMOLYSIS FLAG 90 (0-99); MEAN CELL HEMOGLOBIN 31.3 pg (27.9-34.1); MEAN CELL HEMOGLOBIN CONCENTR. 35.1 g/dL (32.4-36.7); MEAN CELL VOLUME 89.2 fL (81.5-99.8); MEAN PLATELET VOLUME 9.5 fL (8.7-11.7); PLATELET CLUMPS FLAG 10 (0-99); PLATELET COUNT 261 10^3/uL (150-400); RED BLOOD CELL COUNT 3.99 10^6/uL (4.18-5.33); RED CELL DISTRIBUTION WIDTH 12.8 % (11.5-15.2)
[2016-12-23 22:03] LABS: ANION GAP 10 mEq/L (8-16); CALCIUM 9.3 mg/dL (8.5-10.4); CARBON DIOXIDE 23 mEq/l (22-31); CHLORIDE 104 mEq/L (97-110); CREATININE 0.9 mg/dL (0.6-1.0); ETHANOL SERUM < 10 mg/dL (0-10); GLOMERULAR FILTRATION RATE > 60; GLUCOSE 78 mg/dL (70-100); POTASSIUM 3.6 mEq/L (3.5-5.2); SALICYLATE < 1.0 mg/dL (2.0-20.0); SODIUM 137 mEq/L (134-144)
[2016-12-24 00:24] VITALS: O2SAT 98
[2016-12-24 04:32] VITALS: BP 120/60; PULSE 84
== END 2016-12-24 04:29 ==
LOC: EDUNIT#
DX: F32.9 Major depressive disorder, single episode, unspecified (principal); R45.851 Suicidal ideations
CPT/HCPCS: 80305; G0480

== ENCOUNTER 2017-02-10 11:57 | Emergency (ER) | payer MEDICAID ==
[2017-02-10 12:11] VITALS: O2SAT 96
[2017-02-10] MEDS ORDERED: IBUPROFEN 600 MG TAB PO ONE (12:26)
--- NOTE | 2017-02-10 13:21 | CPEKG ---
Heart Rate: 92 RR Interval: 652 P-R Interval: 148 QRSD Interval: 70 QT Interval: 324 QTC Interval: 401 P [place]: 69 QRS [place]: 42 T Wave [place]: 39 EKG Severity - BORDERLINE ECG - EKG Impression: SINUS RHYTHM Electronically Signed By: Antelmo Queen 10-Feb-2017 13:56:07
[2017-02-10] MEDS ORDERED: NS 1,000 ML IV ONE (13:42)
[2017-02-10] MEDS ORDERED: DEXAMETHASONE 10 MG/ML VIAL IVP ONE (13:42)
--- NOTE | 2017-02-10 13:44 | EDPHY ---
H & P Smoking Status: Never smoked Time Seen by Provider: 02/10/17 13:14 HPI/ROS: CHIEF COMPLAINT: Sore throat, fever, syncopal episode HISTORY OF PRESENT ILLNESS: 21-year-old female presents to the emergency department by private vehicle with her friend after having syncopal episode earlier this afternoon. Patient states that she has had a sore throat for last few days and felt feverish. Today she was getting way she take her scheduled medication and then had a syncopal episode at home. Unsure if she hit her head. She denies a headache. Denies neck or back pain. Denies chest pain or difficulty breathing. Denies visual symptoms. She complains of a fairly severe sore throat. Denies dysphagia. No known ill contacts. No recent travel. No rash. REVIEW OF SYSTEMS: Constitutional: Fever Eyes: No double or blurry vision. ENT: sore throat. Respiratory: No cough, no shortness of breath. Cardiac: No chest pain. Gastrointestinal: No abdominal pain, vomiting or diarrhea. Genitourinary: No dysuria. Musculoskeletal: No neck or back pain. Skin: No rashes. Neurological: No headache. (Patito Maxwell M) Past Medical/Surgical History: Depression, Right ankle fracture 11/18 (Patito Maxwell M) Social History: Single (Patito Maxwell) Physical Exam: General Appearance: Alert, no distress. 38.8 temperature, 96% on room air. Eyes: Pupils equal and round. Extraocular motions are all intact. ENT: The posterior pharyngeal injection with exudate present. Small tonsils. No muffled voice or trismus. No uvular swelling or shifting noted. No evidence of peritonsillar abscess. Respiratory: No wheezing, rhonchi, or rales, lungs are clear to auscultation. Cardiovascular: Regular rate and rhythm. Gastrointestinal: Abdomen is soft and nontender, no masses, no rebound or guarding, bowel sounds normal. No hepatosplenomegaly. Neurological: Alert and oriented x 3, cranial nerves II through XII grossly intact Skin: Warm and dry, no rashes. Musculoskeletal: Nontender to palpate along the cervical, thoracic or lumbar spine. Neck is supple. Extremities: Full range of motion and no peripheral edema. Psychiatric: Patient is oriented X 3, there is no agitation. (Patito Maxwell M) Constitutional: Initial Vital Signs Temperature (C) 38.8 C H 02/10/17 12:08 Heart Rate 106 H 02/10/17 12:08 Respiratory Rate 20 02/10/17 12:08 Blood Pressure 101/75 02/10/17 12:08 O2 Sat (%) 96 02/10/17 12:08 O2 Delivery Mode Room Air Allergies/Adverse Reactions: No Known Allergies Allergy (Verified 02/10/17 12:07) Home Medications: Medication Instructions Recorded Venlafaxine Xr [Effexor Xr] 300 mg PO DAILY 11/09/16 Abilify 02/10/17 Penicillin V Potassium 500 mg PO TID #30 tablet 02/10/17 Medical Decision Making - Diagnostics EKG Interpretation: EKG: Complete interpretation has been separately recorded in the [email or web address] archive. Summary impression: Sinus rhythm, rate 92 (Antelmo Queen) ED Course/Re-evaluation: 21-year-old female presents to the emergency department with sore throat and syncopal episode. EKG was unremarkable. Laboratory studies reveal atypical lymphocytes with positive mono screen. Patient received IV normal saline as well as IV Decadron. She had been given oral ibuprofen prior to my examination. The patient had a rapid strep screen which was negative. The patient however smells strongly of strep on her breath. I offered antibiotics she may start today or she may wait for the culture results in 48 hr and then start antibiotics as indicated. The patient elected to start antibiotics today. Patient was given precautions regarding mono especially no contact sports. She will need to be cleared by primary care provider. (Patito Maxwell) Differential Diagnosis: Syncope including but not limited to vasovagal syncope, arrhythmia, dehydration , and blood loss. Sore throat including but not limited to strep pharyngitis, mononucleosis, peritonsillar abscess, viral syndrome (Patito Maxwell) Other Provider: Independent physician examination I evaluated and participated in the management of the patient. I also evaluated the patient independently. My co-signature indicates that I have reviewed this chart and I agree with the findings and plan of care as documented. My personal H&P findings include: The patient presents the ED after an episode of syncope. She has had a upper respiratory infection with symptoms of sore throat and loss of appetite for the past several days. The patient currently is being treated for a fracture in her right foot. She denies any pleuritic chest pain or asymmetric calf pain or swelling. The patient currently denies any acute abdominal pain, headache, numbness or weakness. PHYSICAL EXAM General Appearance: Alert, no distress Eyes: Pupils equal and round no pallor or injection ENT, Mouth: Mucous membranes moist Respiratory: There are no retractions, lungs are clear to auscultation Cardiovascular: Regular rate and rhythm Gastrointestinal: Abdomen is soft and nontender, no masses, bowel sounds normal Neurological: A&O, normal motor function, normal sensory exam, normal cranial nerves Skin: Warm and dry, no rashes Musculoskeletal: Neck is supple nontender Extremities: Boot noted on right lower extremity ED course: I reviewed the patient's EKG which demonstrates no evidence of arrhythmia. The patient had an IV established. She received a L of normal saline. The patient' s strep test was negative. Pending at this point time are CBC, serum chemistries and a test. I suspect the patient experienced a vasovagal episode in the setting of a viral pharyngitis. She is currently feeling better after IV fluid rehydration. I anticipate she will be able to be discharged from the emergency department. The patient does have a atypical lymphocytosis and a positive Monospot test (Antelmo Queen) - Data Points Laboratory Results: Laboratory Results 02/10/17 14:43 02/10/17 14:43 02/10/17 02/10/17 02/10/17 Unknown 14:43 14:43 WBC RBC Hgb Hct MCV MCH MCHC RDW Plt Count MPV Neut % (Auto) Lymph % (Auto) [place] % (Auto) Eos % (Auto) Baso % (Auto) Nucleat RBC Rel Count Absolute Neuts (auto) Absolute Lymphs (auto) Absolute Monos (auto) Absolute Eos (auto) Absolute Basos (auto) Absolute Nucleated RBC Immature Gran % Seg Neutrophils % Band Neutrophils % Lymphocytes % Monocytes % Immature Gran # Absolute Seg Neuts Absolute Band Neuts Absolute Lymphocytes Absolute Monocytes RBC/WBC/PLT Morphology Atypical Lymphocytes Platelet Estimate Smear Review By Sodium 139 mEq/L mEq/L (134-144) Potassium 4.0 mEq/L mEq/L (3.5-5.2) Chloride 104 mEq/L mEq/L (97-110) Carbon Dioxide 22 mEq/l mEq/l (22-31) Anion Gap 13 mEq/L mEq/L (8-16) BUN 7 mg/dL mg/dL (7-23) Creatinine 0.9 mg/dL mg/dL (0.6-1.0) Estimated GFR > 60 Glucose 90 mg/dL mg/dL (70-100) Calcium 9.3 mg/dL mg/dL (8.5-10.4) Beta HCG, Qual NEGATIVE Monoscreen POSITIVE H (NEGATIVE) Group A Strep Screen Group A Strep DNA Pending 02/10/17 02/10/17 14:43 12:30 WBC 7.21 10^3/uL 10^3/uL (3.80-9.50) RBC 4.40 10^6/uL 10^6/uL (4.18-5.33) Hgb 13.4 g/dL g/dL (12.6-16.3) Hct 38.7 % % (38.0-47.0) MCV 88.0 fL fL (81.5-99.8) MCH 30.5 pg pg (27.9-34.1) MCHC 34.6 g/dL g/dL (32.4-36.7) RDW 11.9 % % (11.5-15.2) Plt Count 155 10^3/uL 10^3/uL (150-400) MPV 10.2 fL fL (8.7-11.7) Neut % (Auto) 50.2 % % (39.3-74.2) Lymph % (Auto) 41.1 % % (15.0-45.0) [place] % (Auto) 7.8 % % (4.5-13.0) Eos % (Auto) 0.0 % L % (0.6-7.6) Baso % (Auto) 0.6 % % (0.3-1.7) Nucleat RBC Rel Count 0.0 % % (0.0-0.2) Absolute Neuts (auto) 3.63 10^3/uL 10^3/uL (1.70-6.50) Absolute Lymphs (auto) 2.96 10^3/uL 10^3/uL (1.00-3.00) Absolute Monos (auto) 0.56 10^3/uL 10^3/uL (0.30-0.80) Absolute Eos (auto) 0.00 10^3/uL L 10^3/uL (0.03-0.40) Absolute Basos (auto) 0.04 10^3/uL 10^3/uL (0.02-0.10) Absolute Nucleated RBC 0.00 10^3/uL 10^3/uL (0-0.01) Immature Gran % 0.3 % % (0.0-1.1) Seg Neutrophils % 42 % % Band Neutrophils % 3 % % Lymphocytes % 45 % % Monocytes % 10 % % Immature Gran # 0.02 10^3/uL 10^3/uL (0.00-0.10) Absolute Seg Neuts 3.03 10^/uL 10^/uL (1.70-6.50) Absolute Band Neuts 0.22 10^3/uL 10^3/uL (0.00-0.70) Absolute Lymphocytes 3.24 10^3/uL H 10^3/uL (1.00-3.00) Absolute Monocytes 0.72 10^3/uL 10^3/uL (0.30-0.80) RBC/WBC/PLT Morphology NORMAL (NORMAL) Atypical Lymphocytes 3+ H Platelet Estimate ADEQUATE (ADEQ) Smear Review By Pending Sodium Potassium Chloride Carbon Dioxide Anion Gap BUN Creatinine Estimated GFR Glucose Calcium Beta HCG, Qual Monoscreen Group A Strep Screen NEGATIVE (NEGATIVE) Group A Strep DNA Medications Given: Discontinued Medications Dexamethasone (Decadron Injection) 10 mg IVP EDNOW ONE Stop: 02/10/17 13:43 Last Admin: 02/10/17 15:00 Dose: 10 mg Sodium Chloride (Ns) 1,000 mls @ 0 mls/hr IV ONCE ONE PRN Reason: Wide Open Stop: 02/10/17 13:43 Last Admin: 02/10/17 15:00 Dose: 1,000 mls Ibuprofen (Motrin) 600 mg PO EDNOW ONE Stop: 02/10/17 12:27 Last Admin: 02/10/17 12:30 Dose: 600 mg Departure - Departure Disposition: Home, Routine, Self-Care Clinical Impression: Mononucleosis Pharyngitis Qualifiers: Pharyngitis/tonsillitis etiology: unspecified etiology Qualified Code(s): J02.9 - Acute pharyngitis, unspecified Condition: Good Instructions: Mononucleosis (ED), Pharyngitis (ED) Additional Instructions: Ibuprofen 600mg every 8 hours for pain as directed. Return if you develop difficulty swallowing, difficulty breathing, abdominal pain or if you feel worse in any way. Penicillin as directed. Call [phone] call for the results of your throat culture. Avoid contact sports until cleared by primary care provider. Referrals: Brianna Marques MD [Primary Care Provider] - 1-2 days without fail Prescriptions: Penicillin V Potassium 500 mg PO TID #30 tablet
[2017-02-10 15:01] LABS: % IMMATURE GRANULYOCYTES 0.3 % (0.0-1.1); ABSOLUTE IMMATURE GRANULOCYTES 0.02 10^3/uL (0.00-0.10); ADD DIFF? NO; ADD MORPH? NO; ADD SCAN? YES; FRAGMENT RBC FLAG 0 (0-99); HEMATOCRIT 38.7 % (38.0-47.0); HEMOGLOBIN 13.4 g/dL (12.6-16.3); LEFT SHIFT FLG 0 (0-99); LIPEMIA HEMOLYSIS FLAG 90 (0-99); MEAN CELL HEMOGLOBIN 30.5 pg (27.9-34.1); MEAN CELL HEMOGLOBIN CONCENTR. 34.6 g/dL (32.4-36.7); MEAN PLATELET VOLUME 10.2 fL (8.7-11.7); PLATELET CLUMPS FLAG 0 (0-99); PLATELET COUNT 155 10^3/uL (150-400); RED CELL DISTRIBUTION WIDTH 11.9 % (11.5-15.2)
[2017-02-10 15:17] LABS: ANION GAP 13 mEq/L (8-16); CALCIUM 9.3 mg/dL (8.5-10.4); CARBON DIOXIDE 22 mEq/l (22-31); CHLORIDE 104 mEq/L (97-110); CREATININE 0.9 mg/dL (0.6-1.0); GLOMERULAR FILTRATION RATE > 60; GLUCOSE 90 mg/dL (70-100); SODIUM 139 mEq/L (134-144)
[2017-02-10 15:19] LABS: BHCG-QUALITATIVE NEGATIVE
[2017-02-10 15:23] LABS: MONO TEST POSITIVE (NEGATIVE)
[2017-02-10 15:24] LABS: ATYPICAL LYMPHOCYTE FLAG 220 (0-99)
[2017-02-10 15:40] LABS: SCAN POSITIVE
[2017-02-10 15:45] LABS: PLATELET ESTIMATE ADEQUATE (ADEQ)
[2017-02-10 16:02] VITALS: TEMP 98.6
[2017-02-10 16:35] VITALS: BP 103/56; PULSE 93; RESP 18
== END 2017-02-10 16:35 | disposition home or self-care (01) ==
DX: J02.9 Acute pharyngitis, unspecified (principal); B27.90 Infectious mononucleosis, unspecified without complication
CPT/HCPCS: 96374; J1100

== ENCOUNTER 2017-02-14 16:09 | Observation (INO) | payer MEDICAID ==
--- NOTE | 2017-02-14 17:51 | EDPHY ---
H & P Time Seen by Provider: 02/14/17 17:24 HPI/ROS: Chief complaint. Sore throat patient is a 21-year-old female with sore throat for 5 days. She was seen in our emergency department 3 days ago with diagnosis of mono and had a syncopal episode. She has been on methylprednisone is prednisolone. She can't eat or drink. She is having trouble swallowing and breathing. Slight cough. Fever. 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 She is having trouble caring for herself. She had an open ankle fracture in November and is also wearing a boot on her ankle. ROS Constitutional. Fever Eyes. no problems with vision ENT. Sore throat with trouble swallowing Cardiovascular. no chest pain Respiratory. Slight cough Abdominal. no abdominal pain, no nausea/vomiting, no diarrhea . no problems urinating MS. no calf pain/swelling, no neck/back pain, no joint pain Skin. no rash Lymph. no swollen glands Neuro. no headache, no dizziness, no difficulty walking or with speech Past Medical/Surgical History: Depression, mono, right ankle surgery Social History: Single, nonsmoker, no alcohol Smoking Status: Never smoked Physical Exam: General Appearance: Alert well-developed female moderate distress vital signs show temp 39.3degrees with heart rate 110 Eyes: Pupils equal and round no pallor or injection. ENT, pharynx injected with exudate. No stridor. Respiratory: There are no retractions, lungs are clear to auscultation. Cardiovascular: Regular rate and rhythm. Gastrointestinal: Abdomen is soft and nontender, no masses, bowel sounds normal. Neurological: Awake and alert, sensory and motor exams grossly normal. Skin: Warm and dry, no rashes. Musculoskeletal: Neck is supple nontender. Extremities symmetrical, full range of motion. Psychiatric: Patient is oriented X 3, there is no agitation. Constitutional: Initial Vital Signs Temperature (C) 39.3 C H 02/14/17 16:26 Heart Rate 110 H 02/14/17 16:26 Respiratory Rate 16 02/14/17 16:26 Blood Pressure 118/73 02/14/17 16:26 O2 Sat (%) 96 02/14/17 16:26 O2 Delivery Mode Room Air Allergies/Adverse Reactions: No Known Allergies Allergy (Verified 02/10/17 12:07) Home Medications: Medication Instructions Recorded Venlafaxine Xr [Effexor Xr] 300 mg PO DAILY 11/09/16 Abilify 02/10/17 Latuda 02/14/17 Medical Decision Making - Diagnostics Imaging Results: Imaging Impressions Soft Tissue Neck X-Ray 02/14/17 17:57 Impression: 1. Normal epiglottis. 2. Enlargement of the nasopharyngeal tonsils. Lateral soft tissue neck shows no obvious impending airway closure Procedures: IV normal saline. Liquid Decadron. Liquid ibuprofen for swelling and fever. ED Course/Re-evaluation: On re-evaluation patient is feeling better. health manager is Seen the patient at my request. The patient and I discussed imaging and lab results. We discussed treatment plan including recommendation for admission. She expresses understanding standing and agreement I consulted and discussed the case with PA for Dr. Murrieta, ENT, who will see the patient in the hospital I consulted and discussed case Dr. Cui, hospitalist who agrees to the admission Differential Diagnosis: Considered dehydration, pain control, ability to eat and drinking care for self. I considered airway occlusion and embarrassment. - Data Points Laboratory Results: Laboratory Results 02/14/17 18:30 02/14/17 18:30 02/14/17 02/14/17 18:30 18:30 WBC 8.88 10^3/uL 10^3/uL (3.80-9.50) RBC 4.53 10^6/uL 10^6/uL (4.18-5.33) Hgb 13.9 g/dL g/dL (12.6-16.3) Hct 40.0 % % (38.0-47.0) MCV 88.3 fL fL (81.5-99.8) MCH 30.7 pg pg (27.9-34.1) MCHC 34.8 g/dL g/dL (32.4-36.7) RDW 11.9 % % (11.5-15.2) Plt Count 218 10^3/uL 10^3/uL (150-400) MPV 9.8 fL fL (8.7-11.7) Neut % (Auto) 45.6 % % (39.3-74.2) Lymph % (Auto) 44.9 % % (15.0-45.0) [place] % (Auto) 8.3 % % (4.5-13.0) Eos % (Auto) 0.1 % L % (0.6-7.6) Baso % (Auto) 0.6 % % (0.3-1.7) Nucleat RBC Rel Count 0.0 % % (0.0-0.2) Absolute Neuts (auto) 4.05 10^3/uL 10^3/uL (1.70-6.50) Absolute Lymphs (auto) 3.99 10^3/uL H 10^3/uL (1.00-3.00) Absolute Monos (auto) 0.74 10^3/uL 10^3/uL (0.30-0.80) Absolute Eos (auto) 0.01 10^3/uL L 10^3/uL (0.03-0.40) Absolute Basos (auto) 0.05 10^3/uL 10^3/uL (0.02-0.10) Absolute Nucleated RBC 0.00 10^3/uL 10^3/uL (0-0.01) Immature Gran % 0.5 % % (0.0-1.1) Immature Gran # 0.04 10^3/uL 10^3/uL (0.00-0.10) Sodium 138 mEq/L mEq/L (134-144) Potassium 3.9 mEq/L mEq/L (3.5-5.2) Chloride 99 mEq/L mEq/L (97-110) Carbon Dioxide 27 mEq/l mEq/l (22-31) Anion Gap 12 mEq/L mEq/L (8-16) BUN 8 mg/dL mg/dL (7-23) Creatinine 0.9 mg/dL mg/dL (0.6-1.0) Estimated GFR > 60 Glucose 93 mg/dL mg/dL (70-100) Calcium 9.0 mg/dL mg/dL (8.5-10.4) Medications Given: Discontinued Medications Sodium Chloride (Ns) 1,000 mls @ 0 mls/hr IV EDNOW ONE; Wide Open PRN Reason: Protocol Stop: 02/14/17 17:57 Last Admin: 02/14/17 18:31 Dose: 1,000 mls Ibuprofen (Motrin Oral Solution) 800 mg PO EDNOW ONE Stop: 02/14/17 17:59 Last Admin: 02/14/17 18:31 Dose: 800 mg Departure - Departure Disposition: [facility] Acute Clinical Impression: Mononucleosis Dyspnea Qualifiers: Dyspnea type: other forms of dyspnea Qualified Code(s): R06.09 - Other forms of dyspnea Condition: Fair
[2017-02-14] MEDS ORDERED: NS 1,000 ML IV ONE (17:56)
[2017-02-14] MEDS ORDERED: IBUPROFEN SUSP 100 MG/5 ML UDCUP PO ONE (17:58)
[2017-02-14 18:42] LABS: ADD DIFF? NO; ADD MORPH? NO; FRAGMENT RBC FLAG 0 (0-99); LEFT SHIFT FLG 0 (0-99); LIPEMIA HEMOLYSIS FLAG 90 (0-99); RED CELL DISTRIBUTION WIDTH 11.9 % (11.5-15.2)
[2017-02-14 18:53] LABS: % IMMATURE GRANULYOCYTES 0.5 % (0.0-1.1); ABSOLUTE IMMATURE GRANULOCYTES 0.04 10^3/uL (0.00-0.10); ADD SCAN? NO; ATYPICAL LYMPHOCYTE FLAG 90 (0-99); HEMOGLOBIN 13.9 g/dL (12.6-16.3); MEAN CELL HEMOGLOBIN 30.7 pg (27.9-34.1); MEAN CELL HEMOGLOBIN CONCENTR. 34.8 g/dL (32.4-36.7); MEAN CELL VOLUME 88.3 fL (81.5-99.8); MEAN PLATELET VOLUME 9.8 fL (8.7-11.7); PLATELET CLUMPS FLAG 40 (0-99); PLATELET COUNT 218 10^3/uL (150-400); RED BLOOD CELL COUNT 4.53 10^6/uL (4.18-5.33)
[2017-02-14 19:01] LABS: ANION GAP 12 mEq/L (8-16); CARBON DIOXIDE 27 mEq/l (22-31); CHLORIDE 99 mEq/L (97-110); CREATININE 0.9 mg/dL (0.6-1.0); GLOMERULAR FILTRATION RATE > 60; GLUCOSE 93 mg/dL (70-100); POTASSIUM 3.9 mEq/L (3.5-5.2); SODIUM 138 mEq/L (134-144)
[2017-02-14] MEDS ORDERED: DEXAMETHASONE 1 MG/ML 30 ML BOTTLE PO ONE (19:26)
[2017-02-14] MEDS ORDERED: ACETAMINOPHEN 325 MG TAB PO PRN (21:48)
[2017-02-14] MEDS ORDERED: ONDANSETRON DISINTEGRATING 4 MG TAB PO PRN (21:48)
[2017-02-14] MEDS ORDERED: ONDANSETRON 4 MG/2 ML VIAL IVP PRN (21:48)
[2017-02-14] MEDS ORDERED: CEPACOL LOZENGE PO ONE (21:50)
[2017-02-14] MEDS ORDERED: LIDOCAINE 2% VISCOUS 15 ML UDCUP PO PRN (22:18)
--- NOTE | 2017-02-14 22:59 | GHP ---
[f rep st] HISTORY AND PHYSICAL DATE OF ADMISSION: 02/14/2017 CHIEF COMPLAINT: Mononucleosis, difficulty swallowing. HISTORY OF PRESENT ILLNESS: A 21-year-old female with a history of depression, who was seen in the ED here 02/10/2017, with fatigue, fever, and sore throat and was diagnosed with mono. She was discharged home from the ER and returns today with worsening sore throat and difficulty swallowing. She reports a slight cough. She has been very fatigued over the past week. She has had a headache and decreased p.o. intake. Complains of a sore back. REVIEW OF SYSTEMS: I completed a 10-point review of systems, negative except as noted in HPI. PAST MEDICAL HISTORY: Depression. PAST SURGICAL HISTORY: Recent ankle fracture and surgery. FAMILY HISTORY: No diabetes or high blood pressure. SOCIAL HISTORY: She is a [employer] senior, studying physiology and wants to be a nurse. No alcohol, tobacco, or drugs. ALLERGIES: No known drug allergies. HOME MEDICATIONS: Medrol Ahmet. Effexor 300 mg daily. Latuda 40 mg daily. Abilify 2.5 mg daily. PHYSICAL EXAMINATION: VITAL SIGNS: Temperature 38.7, blood pressure 95/62, now 120/71. Heart rates in the one teens, respirations 16, 94% on room air. GENERAL: Ill-appearing, fatigued. HEENT: PERRLA. Dry mucous membranes. Kissing tonsils but airway is patent. CV: Regular rate and rhythm. No murmurs , gallops, or rubs. LUNGS: Clear to auscultation bilaterally. ABDOMEN: Soft , nontender, nondistended. Positive bowel sounds. : No Toribio. MUSCULOSKELETAL: 5/5 upper and lower extremity strength. NEUROLOGIC: 2 through 12 intact. PSYCHIATRIC: Alert and oriented x3. LYMPH: Positive cervical lymphadenopathy. Mildly tender. LABS: WBC 8, hemoglobin 13, hematocrit 40, platelets 218. Sodium 138, potassium 3.9, chloride 99, carbon dioxide 27, creatinine 0.9. Positive mono on 02/10/2017. Negative strep. Soft tissue x-ray negative. Epiglottitis. Enlargement of the nasopharyngeal tonsils. ASSESSMENT AND PLAN: 1. Fever, secondary to mononucleosis. She is hemodynamically stable. We will provide p.r.n. Tylenol. 2. Tachycardia, resolved with IV fluids. We will continue these. 3. Mononucleosis. Symptomatic relief with Toradol, Cepacol lozenges. Patient was advised no contact sports for 6 weeks. 4. Difficulty swallowing. Airway is patent. She does have enlarged tonsils. Dr. Murrieta with ENT was consulted from the ED and will see patient in the morning. IV dexamethasone. 5. Diet, regular. 6. Deep venous thrombosis prophylaxis, low risk. 7. Disposition. Patient warrants observation admission given progressive difficulty swallowing and throat pain, requiring IV fluid resuscitation, IV steroids, and pain control. /[id number]/MODL MTDD
[2017-02-14] MEDS: DEXAMETHASONE 4 MG/ML VIAL IVP SCH (23:40)
[2017-02-14] MEDS: LR 1,000 ML IV SCH (23:40)
[2017-02-15 04:07] VITALS: RESP 16
[2017-02-15] MEDS: DEXAMETHASONE 4 MG/ML VIAL IVP SCH ×2 (06:20→12:18)
[2017-02-15] MEDS: LR 1,000 ML IV SCH ×2 (06:25→14:15)
[2017-02-15 08:11] VITALS: O2SAT 97
[2017-02-15] MEDS ORDERED: ARIPiprazole 5 MG TAB PO SCH (09:00)
[2017-02-15] MEDS ORDERED: VENLAFAXINE XR 150 MG CAP PO SCH (09:00)
--- NOTE | 2017-02-15 10:48 | PDCONSULT ---
Web Production Artist Note: S: This 21 year old female with mononucleosis was admitted 02/14/17 for observation. She reports 1 week history of sore throat. Was evaluated in the ED 5 days ago and diagnosed with mono and had syncopal episode. She had follow up with her PCP who prescribed oral steroids and numbing mouth wash. She presented to the ED again last night for worsening sore throat, difficulty swallowing and breathing. She lives in the dorm and was having trouble caring for herself. She had right ankle surgery in November She is feeling much better today. Denies chills. Denies odynophagia, dysphagia, dyspnea. Breathing well through nose and mouth. She notes anterior/posterior cervical lymphadenopathy. ROS otherwise unremarkable. Past medical hx: Depression, mono, right ankle surgery Social hx: single, non-smoker, no alcohol Allergies: NKDA Home meds: Venlafaxine 300 mg PO daily, Abilify, Latuda O: Soft Tissue Neck X-ray from 02/14/17 reviewed- normal epiglottis, enlarged nasopharyngeal tonsils. Afebrile, VSS. Gen: She was evaluated in bed, alert well developed female in no acute distress. Head: normocephalic, atraumatic ENT: Diffuse ant/post cervical lymphadenopathy. Airway patent. Tonsils 3+ with exudate. Resp: Non-labored breathing. No stridor or hoarseness. Cardio: Regular rate, rhythm Skin: Warm, dry Neuro: Awake and alert, sensory and motor grossly normal Assessment/Plan: 21 year old female with mononucleosis. She is noted to have bilateral tonsillitis with exudate, swelling of uvula. Her airway is patent, swallowing without any issues. I reviewed with the patient the fluctuating course of mono, and the possibility of bacterial infections, and precautions for splenomegaly. Recommend IV fluids per medicine, IV dexamethasone 16 mg q8 x 3 doses, clindamycin 600 mg QID. Recommend follow up outpatient as needed. Case was reviewed with Dr. Andrade.
[2017-02-15 11:11] VITALS: BP 115/70; PULSE 74; TEMP 97.9
--- NOTE | 2017-02-15 13:17 | HOSPPROG ---
Hospitalist Progress Note Assessment/Plan: Patient is a 21-year-old female with history of depression who was recently diagnosed with mono. She was discharged from the ER return with worsening sore throat and difficulty swallowing she reports a slight cough * acute mono with associated pain and fever -appreciate ENT consult -strep a is negative x2, would be hesitant to treat w abx out of concern of rash even though it's clindamycin -patient does have underlying tonsillitis but hesitant to treat with antibiotics * tachycardia -resolved * depression -home meds resumed, well managed. *Plan: spoke w Kimi Pimentel, JOCELYNN w ENT. Patient doesn't appear acutely ill. Airway is patent, has some exudate on tonsils. Subjective: Opal is feeling better today. Objective: Vital Signs Temp Pulse Resp BP Pulse Ox 36.6 C 74 16 115/70 97 02/15/17 11:11 02/15/17 11:11 02/15/17 11:11 02/15/17 11:11 02/15/17 11:11 02/14/17 02/15/17 02/16/17 05:59 05:59 05:59 Intake Total 950 Balance 950 - Physical Exam Constitutional: no apparent distress, appears nourished Ears, Nose, Mouth, Throat: other (exudate on both tonsils, ) Cardiovascular: regular rate and rhythym, No tachycardia Respiratory: no respiratory distress Gastrointestinal: normoactive bowel sounds Skin: warm Musculoskeletal: full muscle strength Neurologic: AAOx3 Psychiatric: interacting appropriately ICD10 Worksheet Patient Problems: Problems Problem Status Onset Dyspnea Acute Mononucleosis Acute Fall from skateboard Acute Open right ankle fracture Acute
[2017-02-15] MEDS ORDERED: CLINDAMYCIN 600 MG/DEXTROSE 50 ML IV SCH (14:00)
--- NOTE | 2017-02-15 16:22 | GDS ---
[f rep st] DISCHARGE SUMMARY DISCHARGE DIAGNOSES: 1. Acute mononucleosis. 2. Sore throat due to this. 3. Tachycardia. 4. Depression. CONSULTATION: Kimi Pimentel PA-C with ENT. BRIEF HISTORY: The patient is a 21-year-old woman with a history of depression , was seen in the emergency room on February 10, 2017, with fatigue, fever, sore throat. She was diagnosed with mononucleosis and was discharged home and told to take it easy. She returned to the ER because she had a headache and decreased p.o. intake and complaints of a sore neck. She was checked for strep. This was negative. Her tonsils were enlarged with some exudate. She was seen and evaluated by ENT. Their recommendation was to continue her on high -dose steroids for 3 doses as well as antibiotic therapy. She had a soft tissue neck x-ray performed which showed normal epiglottis. She had enlargement of the nasopharyngeal tonsils. HOSPITAL COURSE: 1. Mononucleosis. I have given her supportive care. She is feeling markedly better. She was febrile on admission. 2. Sore throat. On evaluation of her throat, she does have some exudate on her tonsils. Recommendation by ENT is clindamycin. They provided her with a prescription for this. 3. Depression. Resumed her home med. 4. Tachycardia, resolved. DISCHARGE CONDITION: Stable. Blood pressure is 115/70, heart rate is 70, respiratory rate is 16, O2 sats on room air 97%, temperature 36.6 Celsius. MEDICATIONS AT DISCHARGE: Please see the EMR. DISCHARGE INSTRUCTIONS: 1. To follow up with ENT. 2. To avoid high contact sports. She has been given a handout on mononucleosis. 3. If she develops a rash; to return to the ER. /[id number]/MODL MTDD
[2017-02-15] MEDS ORDERED: LURASIDONE HCL 40 MG TAB PO SCH (18:00)
--- NOTE | 2017-02-15 18:09 | ASDISCHSUM ---
Discharge Information Plan Status:Home with No Needs Medically Cleared to Leave: Discharge Date:02/15/2017 04:58 PM CM D/C Disposition:Home, Routine, Self-Care ADT D/C Disposition:Home, Routine, Self-Care Projected Discharge Date:02/15/2017 04:58 PM Transportation at D/C: Discharge Delay Reason: Follow-Up Date:02/15/2017 04:58 PM Discharge Slot: Final Diagnosis: Placement Information Patient Contact Information Contact Name:KELSEY Relationship:Mother Address: Work Phone: City: [facility] Phone: State/Zip Code: Email: Financial Information Financial Class: Primary Plan Desc:[employer] Primary Plan Number:[id number] Secondary Plan Desc: Secondary Plan Number: Assessment Information Intervention Information
== END 2017-02-15 16:58 | disposition home or self-care (01) ==
LOC: F3E 20:13
PROVIDERS: ADMIT Internal Medicine; ATTEND Internal Medicine
DX: B27.90 Infectious mononucleosis, unspecified without complication (principal); J03.90 Acute tonsillitis, unspecified; R00.0 Tachycardia, unspecified; F32.9 Major depressive disorder, single episode, unspecified; M54.9 Dorsalgia, unspecified; S82.899D Other fracture of unspecified lower leg, subsequent encounter for closed fracture with routine healing; X58.XXXD Exposure to other specified factors, subsequent encounter
CPT/HCPCS: 70360; G0378; J1100

== ENCOUNTER 2018-02-06 14:22 | Emergency (ER) | payer MEDICAID ==
[2018-02-06] MEDS ORDERED: NS 1,000 ML IV ONE ×2 (15:03→16:27)
[2018-02-06] MEDS ORDERED: KETOROLAC 15 MG/1 ML SDV IVP ONE (15:03)
[2018-02-06] MEDS ORDERED: METOCLOPRAMIDE 10 MG/2 ML VIAL IVP ONE (15:04)
--- NOTE | 2018-02-06 15:06 | EDPHY ---
H & P Stated Complaint: Pt woke c nausea, H/A, syncope, diarrhea. Denies N/V. Time Seen by Provider: 02/06/18 14:45 HPI/ROS: Chief Complaint: Headache, fever, syncope HPI: 22-year-old woman presenting with headache, general malaise, moderate headache and fever. Patient states that she felt unwell this morning when she got up. Headaches about an 8/10. Is similar to migraine headaches she has had in the past. She got out of bed this morning inside of the counter. She felt lightheaded and states she had a positive syncopal episode. Does not believe she hit her head. Did not fall to the ground. No cough. No chest pain shortness of breath. No urinary urgency or frequency. Last menstrual cycle began on the 11 of last month. No vaginal discharge or bleeding. She is not taking any medications. ROS: 10 systems were reviewed and were negative except those elements noted in the HPI. PMH: Migraine headaches Social History: No smoking, occasional alcohol, occasional marijuana Family History: non-contributory Physical Exam: Gen: Awake, Alert, No Distress HEENT: Nose: no rhinorrhea Eyes: PERRLA, EOMI Mouth: Moist mucosa Neck: Supple, no JVD Chest: nontender, lungs clear to auscultation Heart: S1, S2 normal, no murmur Abd: Soft, non-tender, no guarding Back: no CVA tenderness, no midline tenderness Ext: no edema, non-tender Skin: no rash Neuro: CN II-XII intact, Sensation grossly intact, Strength 5/5 in bilateral upper and lower extremities - Personal History Current Tetanus/Diphtheria Vaccine: Yes Tetanus Vaccine Date: 2015 - Medical/Surgical History Hx Asthma: No Hx Chronic Respiratory Disease: No Hx Diabetes: No Hx Cardiac Disease: No Hx Renal Disease: No Hx Cirrhosis: No Hx Alcoholism: No Hx HIV/AIDS: No Hx Splenectomy or Spleen Trauma: No Other PMH: depression on meds, mono, R ankle surgery - Social History Smoking Status: Never smoked Constitutional: Initial Vital Signs Temperature (C) 38.8 C H 02/06/18 14:32 Heart Rate 125 H 02/06/18 14:32 Respiratory Rate 18 02/06/18 14:32 Blood Pressure 95/58 L 02/06/18 14:32 O2 Sat (%) 95 02/06/18 14:32 O2 Delivery Mode Room Air Allergies/Adverse Reactions: No Known Allergies Allergy (Verified 02/06/18 14:32) Home Medications: Medication Instructions Recorded ARIPiprazole [Abilify 5 mg (*)] 2.5 mg PO DAILY 02/14/17 Lurasidone HCl [Latuda] 40 mg PO DAILY@1800 02/14/17 Venlafaxine Xr [Effexor Xr] 300 mg PO DAILY 02/14/17 Acetaminophen [Tylenol 325mg (*)] 650 mg PO Q4HRS PRN tab 02/15/17 Dexamethasone [Decadron 4 MG (*)] 16 mg PO Q8 #12 tab 02/15/17 Medical Decision Making - Diagnostics EKG Interpretation: ECG time 4:22 p.m., sinus tachycardia with a rate of 111, normal axis, normal intervals, no acute ST or T-wave changes. ED Course/Re-evaluation: Patient's headache is 1/10. Patient has received 2 L of IV fluids. Some Toradol, Reglan and acetaminophen. White count is 11.5. She is no focal source of infection. She is currently without complaint. Tolerating p.o.. She has defervesced. Symptoms are consistent with viral syndrome. Will discharge with alternating ibuprofen acetaminophen. Plenty of fluids, rest. ECG is unremarkable. Syncopal episode likely vasovagal secondary to her dehydration. She is otherwise well-appearing. She certainly does not look septic at this time. No focal source of bacterial infection. She is very well- appearing. Will discharge with follow-up with primary care as an outpatient. - Data Points Laboratory Results: Laboratory Results 02/06/18 14:46 02/06/18 14:46 02/06/18 02/06/18 02/06/18 14:46 14:46 14:46 WBC 11.55 10^3/uL H 10^3/uL (3.80-9.50) RBC 4.56 10^6/uL 10^6/uL (4.18-5.33) Hgb 14.1 g/dL g/dL (12.6-16.3) Hct 40.8 % % (38.0-47.0) MCV 89.5 fL fL (81.5-99.8) MCH 30.9 pg pg (27.9-34.1) MCHC 34.6 g/dL g/dL (32.4-36.7) RDW 11.8 % % (11.5-15.2) Plt Count 223 10^3/uL 10^3/uL (150-400) MPV 10.2 fL fL (8.7-11.7) Neut % (Auto) 90.8 % H % (39.3-74.2) Lymph % (Auto) 3.9 % L % (15.0-45.0) [place] % (Auto) 4.6 % % (4.5-13.0) Eos % (Auto) 0.0 % L % (0.6-7.6) Baso % (Auto) 0.1 % L % (0.3-1.7) Nucleat RBC Rel Count 0.0 % % (0.0-0.2) Absolute Neuts (auto) 10.49 10^3/uL H 10^3/uL (1.70-6.50) Absolute Lymphs (auto) 0.45 10^3/uL L 10^3/uL (1.00-3.00) Absolute Monos (auto) 0.53 10^3/uL 10^3/uL (0.30-0.80) Absolute Eos (auto) 0.00 10^3/uL L 10^3/uL (0.03-0.40) Absolute Basos (auto) 0.01 10^3/uL L 10^3/uL (0.02-0.10) Absolute Nucleated RBC 0.00 10^3/uL 10^3/uL (0-0.01) Immature Gran % 0.6 % % (0.0-1.1) Immature Gran # 0.07 10^3/uL 10^3/uL (0.00-0.10) RBC/WBC/PLT Morphology TNP Platelet Estimate TNP Sodium 136 mEq/L mEq/L (135-145) Potassium 3.9 mEq/L mEq/L (3.5-5.2) Chloride 105 mEq/L mEq/L (97-110) Carbon Dioxide 22 mEq/l mEq/l (22-31) Anion Gap 9 mEq/L mEq/L (6-14) BUN 12 mg/dL mg/dL (7-23) Creatinine 1.1 mg/dL H mg/dL (0.6-1.0) Estimated GFR > 60 Glucose 120 mg/dL H mg/dL (70-100) Calcium 9.3 mg/dL mg/dL (8.5-10.4) Beta HCG, Qual NEGATIVE Medications Given: Discontinued Medications Acetaminophen (Tylenol) 1,000 mg PO EDNOW ONE Stop: 02/06/18 16:28 Last Admin: 02/06/18 16:39 Dose: 1,000 mg Sodium Chloride (Ns) 1,000 mls @ 0 mls/hr IV ONCE ONE; Wide Open PRN Reason: Protocol Stop: 02/06/18 15:04 Last Admin: 02/06/18 15:43 Dose: 1,000 mls Sodium Chloride (Ns) 1,000 mls @ 0 mls/hr IV ONCE ONE; Wide Open PRN Reason: Protocol Stop: 02/06/18 16:28 Last Admin: 02/06/18 16:38 Dose: 1,000 mls Ketorolac Tromethamine (Toradol) 15 mg IVP EDNOW ONE Stop: 02/06/18 15:04 Last Admin: 02/06/18 15:43 Dose: 15 mg Metoclopramide HCl (Reglan Injection) 10 mg IVP EDNOW ONE Stop: 02/06/18 15:05 Last Admin: 02/06/18 15:43 Dose: 10 mg Departure - Departure Disposition: Home, Routine, Self-Care Clinical Impression: Viral syndrome, Dehydration Condition: Good Instructions: Dehydration (ED), Viral Syndrome (ED) Additional Instructions: Alternate acetaminophen (1000 mg) with ibuprofen (400 mg) every 4 hours as needed for fevers, chills, aches or pain. Make sure to drink plenty of fluids. Follow up with primary care physician in 2-3 days for further evaluation. Return to the emergency department for further fainting, uncontrolled fevers, worsening fatigue, uncontrolled nausea vomiting, shortness of breath, or any other concerns. Referrals: Brianna Marques MD [Primary Care Provider] - As per Instructions
[2018-02-06 15:20] LABS: PLATELET COUNT 223 10^3/uL (150-400)
[2018-02-06] MEDS ORDERED: ACETAMINOPHEN 500 MG TAB PO ONE (16:27)
[2018-02-06 17:58] VITALS: BP 101/49
--- NOTE | 2018-02-06 20:15 | CPEKG ---
Test Reason : OPEN Blood Pressure : / mmHG Vent. Rate : 111 BPM Atrial Rate : 110 BPM P-R Int : 131 ms QRS Dur : 071 ms QT Int : 345 ms P-R-T Axes : 077 068 000 degrees QTc Int : 469 ms Sinus tachycardia Borderline abnrm T, anterolateral leads Confirmed by Celso Flowers ([id number] on 02/06/2018 8:14:16 PM Referred By: Confirmed By:Celso Flowers
== END 2018-02-06 18:49 | disposition home or self-care (01) ==
DX: B34.9 Viral infection, unspecified (principal); E86.0 Dehydration
CPT/HCPCS: 96374; J1885; J2765